=== PATIENT | female | born 1970 | race Native Hawaiian/Other Pacific Islander ===

== ENCOUNTER 2018-10-29 17:53 | Emergency (ER) | payer OTHER ==
[~2018-10-29] VITALS: Ht 170.2 cm; Wt 92.5 kg
[~2018-10-29 17:53] MED LIST: ALPR0.5T24 PO; CARB200T42 PO; CARV12.5 PO; DOCU100C10 PO; DONE5TAB PO; GABA100C2 PO; HALO5TAB10 PO; IBUPROFEN IB200 MG PO; KEPPRA PO; LACTULOSE PO; MELATONIN1 M1 PO; OXYCODONE PO; POTASSIUM PO; PROZAC PO; TRAM50TA PO; VITAMIN C1 CH1 PO; VITAMIN D 3 PO; ZOFRAN8 MG PO; [UNRECOGNIZED DRUG - OTHER] PO
[2018-10-29 18:38] LABS: PLATELET COUNT 115 K/uL (152-353)
[2018-10-29 18:43] LABS: POTASSIUM 4.4 mmol/L (3.6-5.2)
[2018-10-29] MEDS ORDERED: DULOXETINE HCL30 MG PO (19:33)
[2018-10-29 19:35] VITALS: BP 181/105; TEMP 98.5
[2018-10-29] MEDS ORDERED: PANTOPRAZOLE SO20 MG PO (19:36)
[2018-10-29] MEDS ORDERED: SODI1TAB PO (19:39)
[2018-10-29] MEDS ORDERED: KEPPRA750 MG PO (19:39)
[2018-10-29] MEDS ORDERED: LACO200T PO (19:40)
[2018-10-29] MEDS ORDERED: TRAZODONE HYDR100 MG PO (19:43)
[2018-10-29] MEDS ORDERED: BACL10TA4 PO (19:45)
[2018-10-29] MEDS ORDERED: MELATONIN1 M1 PO (20:00)
[2018-10-29] MEDS ORDERED: HALO5TAB10 PO ×2 (20:04→20:05)
== END 2018-10-29 19:37 | disposition other institution (70) ==
LOC: ED 17:53
PROVIDERS: Emergency Medicine
DX: F28 Other psychotic disorder not due to a substance or known physiological condition (principal); Z04.6 Encounter for general psychiatric examination, requested by authority
CPT/HCPCS: 36415; 80053; 81000; 85027; 93005; 99285

== ENCOUNTER 2020-04-26 19:09 | Emergency (ER) | payer OTHER ==
[~2020-04-26] VITALS: Ht 162.6 cm; Wt 93.4 kg
[~2020-04-26 19:09] MED LIST changes: +BACL10TA4 PO; +DULOXETINE HCL30 MG PO; +ESCI10TA PO; +KEPPRA750 MG PO; +LACO200T PO; +LACTSYP31 PO; +LIDOPATCH TOP; +OXCARBAZEPIN300 MG PO; +PANTOPRAZOLE SO20 MG PO; +SODI1TAB PO; +TRAZODONE HYDR100 MG PO
[2020-04-26 19:34] LABS: PLATELET COUNT 72 K/uL (152-353)
[2020-04-26 19:47] LABS: POTASSIUM 4.1 mmol/L (3.6-5.2)
[2020-04-26 20:09] VITALS: BP 136/81; TEMP 98.2
[2020-04-26] MEDS ORDERED: IBU800 MG PO (22:23)
[2020-04-26] MEDS ORDERED: OXYB5TAB64 PO (22:28)
[2020-04-26] MEDS ORDERED: KEPPRA1000 MG PO (22:38)
[2020-04-26] MEDS ORDERED: PHENOBARB60 MG PO (22:42)
[2020-04-26] MEDS ORDERED: SODI1TAB PO (22:48)
[2020-04-26] MEDS ORDERED: LACTSYP31 PO (22:51)
[2020-04-26] MEDS ORDERED: K-TAB20 MEQ PO (22:53)
[2020-04-26] MEDS ORDERED: RISP1TAB PO (22:55)
[2020-04-26] MEDS ORDERED: RISP0.5T2 PO (22:57)
[2020-04-26] MEDS ORDERED: HALO2CON2 PO (23:01)
== END 2020-04-26 20:09 | disposition other institution (70) ==
LOC: ED 19:09
PROVIDERS: Family Medicine
DX: R45.1 Restlessness and agitation (principal); R46.89 Other symptoms and signs involving appearance and behavior; F31.89 Other bipolar disorder; F20.89 Other schizophrenia; Z11.59 Encounter for screening for other viral diseases; Z04.6 Encounter for general psychiatric examination, requested by authority
CPT/HCPCS: 36415; 80053; 81000; 85027; 87635; 93005; 96372; 99283; J3486; U0003